=== PATIENT | female | born 1975 | race Caucasian/White ===

== ENCOUNTER 2016-03-01 16:17 | Emergency (ER) | payer OTHER ==
[~2016-03-01] VITALS: Ht 167.6 cm; Wt 72.6 kg
[2016-03-01] MEDS ORDERED: ALPRAZOLAM 0.5 MG TABLET PO ONE (17:00)
[2016-03-01] MEDS ORDERED: PARO20TA55 PO (17:52)
[2016-03-01] MEDS ORDERED: ALPR0.254 PO (17:52)
--- NOTE | 2016-03-01 17:52 | PHYS DOC ---
Past Medical History Past Medical History: Anxiety Past Surgical History: No Surgical History Alcohol Use: Occasionally Drug Use: None Adult General Chief Complaint Chief Complaint: CHEST PAIN-CARDIAC NATURE HPI HPI 41-year-old with a history of anxiety and depression states her symptoms have been getting worse over the last several weeks. She states she constantly is anxious which is limiting what she can do on a day-to-day basis. She also states she feels down in the dumps. She denies any suicidal or homicidal ideation. She states she's been told in the past that she needs to be on an antidepressant. [] Review of Systems Review of Systems Constitutional: Denies fever or chills [] Eyes: Denies change in visual acuity, redness, or eye pain [] HENT: Denies nasal congestion or sore throat [] Respiratory: Denies cough or shortness of breath [] Cardiovascular: No additional information not addressed in HPI [] GI: Denies abdominal pain, nausea, vomiting, bloody stools or diarrhea [] : Denies dysuria or hematuria [] Musculoskeletal: Denies back pain or joint pain [] Integument: Denies rash or skin lesions [] Neurologic: Denies headache, focal weakness or sensory changes [] Endocrine: Denies polyuria or polydipsia [] Current Medications Current Medications Current Medications Medications (Trade) Dose Ordered Sig/[facility] Start Time Stop Time Status Last Admin Dose Admin Alprazolam (Xanax) 1 mg 1X ONCE 03/01/16 17:00 03/01/16 17:01 DC 03/01/16 17:12 1 MG Allergies Allergies Allergies Coded Allergies Type Severity Reaction Last Updated Verified No Known Drug Allergies 03/01/16 No Physical Exam Physical Exam Constitutional: Well developed, well nourished, no acute distress, non-toxic appearance. [] HENT: Normocephalic, atraumatic, bilateral external ears normal, oropharynx moist, no oral exudates, nose normal. [] Eyes: PERRLA, EOMI, conjunctiva normal, no discharge. [] Neck: Normal range of motion, no tenderness, supple, no stridor. [] Cardiovascular:Heart rate regular rhythm, no murmur [] Lungs & Thorax: Bilateral breath sounds clear to auscultation [] Abdomen: Bowel sounds normal, soft, no tenderness, no masses, no pulsatile masses. [] Skin: Warm, dry, no erythema, no rash. [] Back: No tenderness, no CVA tenderness. [] Extremities: No tenderness, no cyanosis, no clubbing, ROM intact, no edema. [] Neurologic: Alert and oriented X 3, normal motor function, normal sensory function, no focal deficits noted. [] Psychologic: Depressed affect tearful adamantly denies suicidal or homicidal ideation. [] Current Patient Data Vital Signs Vital Signs Date Time Temp Pulse Resp B/P Pulse Ox O2 Delivery O2 Flow Rate FiO2 03/01/16 16:17 98.1 97 14 147/74 94 Room Air 98.1 EKG EKG [] Radiology/Procedures Radiology/Procedures [] Course & Med Decision Making Course & Med Decision Making Pertinent Labs and Imaging studies reviewed. (See chart for details) [ED course: I which reveals an anxious 41-year-old female in no significant medical distress. She was given alprazolam during her stay in the department which did help alleviate her symptoms. The patient is stable for discharge home. I will prescribe her an SSRI and give her a few Xanax to take as needed.] Dragon Disclaimer Dragon Disclaimer This electronic medical record was generated, in whole or in part, using a voice recognition dictation system. Departure Departure Impression: Primary Impression: Depression Additional Impression: Anxiety Disposition: 01 HOME, SELF-CARE Condition: STABLE Referrals: NEGRA MCKNIGHT MD (PCP) Patient Instructions: Anxiety and Panic Attacks, Depression, Adult Additional Instructions: Thank you for allowing us to participate in your care today. Followup with your primary care physician in 3 days if your symptoms do not improve. Return to the emergency department you have any new or concerning findings. This should be evaluated by the primary care physician and any necessary consulting services for continued management within a few days after discharge. Return to emergency room if you have any new or concerning symptoms including but not limited to fever, chills, nausea, vomiting, intractable pain, any new rashes, chest pain, shortness of air, uncontrolled bleeding, difficulty breathing, and/or vision loss. You may have been prescribed medication that can change in your level of thinking and ability to operate machinery. These medications include hydrocodone and Ativan. Also, Benadryl has been known to do this as well. Be sure to check with your pharmacist and ask if the medications you've prescribed can affect your level of consciousness. I recommend not operating heavy machinery or driving while on medication such as these. Scripts Paroxetine Hcl (Paxil)20 Mg Tablet1 Tab PO DAILY depression #90 TAB Ref 3 Prov:CHAD FELTON DO 03/01/16 Alprazolam 0.25 Mg Tablet0.25 Mg PO PRN Q6HRS PRN ANXIETY / AGITATION #20 TAB Prov:CHAD FELTON DO 03/01/16 Problem Qualifiers Primary Impression: Depression Depression Type: unspecified Qualified Code: F32.9 - Major depressive disorder, single episode, unspecified CHAD FELTON DO Mar 01, 2016 17:52
[2016-03-01 18:20] VITALS: BP 140/83
--- NOTE | 2016-03-02 06:56 | EKG ---
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
== END 2016-03-01 19:05 | disposition home or self-care (01) ==
LOC: ER 16:17
DX: F41.9 Anxiety disorder, unspecified (principal); F32.9 Major depressive disorder, single episode, unspecified
CPT/HCPCS: 93005; 99283-25

== ENCOUNTER 2017-04-17 12:25 | Inpatient (IN) | payer OTHER ==
[2017-04-17] MEDS: DIPHTH,PERTUSS(ACELL),TET TOX 0.5 ML DISP.SYRIN. VAX IM (13:30)
[2017-04-17 14:56] LABS: ADD MAN DIFF? NO
[2017-04-17 15:01] LABS: BASO % 1 % (0-3); EOS # 0.1 x10^3/uL (0.0-0.7); EOS % 1 % (0-3); HEMATOCRIT 49.8 % (36.0-47.0); HEMOGLOBIN 16.6 g/dL (12.0-15.5); LYMPH # 1.8 x10^3/uL (1.0-4.8); LYMPH % 27 % (24-48); MEAN CORPUSCULAR HEMOGLOBIN 31 pg (25-35); MEAN CORPUSCULAR HGB CONC 33 g/dL (31-37); MEAN CORPUSCULAR VOLUME 93 fL (79-100); MONO # 0.4 x10^3/uL (0.0-1.1); MONO % 6 % (0-9); NEUT # 4.3 x10^3uL (1.8-7.7); NEUT % 65 % (31-73); PLATELET COUNT 195 x10^3/uL (140-400); RED BLOOD COUNT 5.35 x10^6/uL (3.50-5.40); RED CELL DISTRIBUTION WIDTH 14.1 % (11.5-14.5); WHITE BLOOD COUNT 6.6 x10^3/uL (4.0-11.0)
[2017-04-17 15:12] LABS: PARTIAL THROMBOPLASTIN TIME 29 SEC (24-38)
[2017-04-17 15:17] LABS: ANION GAP 11 (6-14); BLOOD UREA NITROGEN 6 mg/dL (7-20); BUN/CREATININE RATIO 7 (6-20); CALCIUM 9.8 mg/dL (8.5-10.1); CARBON DIOXIDE 28 mmol/L (21-32); CHLORIDE 103 mmol/L (98-107); CREATININE 0.9 mg/dL (0.6-1.0); GFR 69.3; GLUCOSE 93 mg/dL (70-99); POTASSIUM 4.4 mmol/L (3.5-5.1); SODIUM 142 mmol/L (136-145)
[2017-04-17 15:21] LABS: ALBUMIN 4.2 g/dL (3.4-5.0); ALBUMIN/GLOBULIN RATIO 1.2 (1.0-1.7); ALK PHOS 54 U/L (46-116); ALT (SGPT) 25 U/L (14-59); AST (SGOT) 16 U/L (15-37); TOTAL BILIRUBIN 0.9 mg/dL (0.2-1.0); TOTAL PROTEIN 7.8 g/dL (6.4-8.2)
[2017-04-17] MEDS: WARFARIN 7.5 MG TABLET. PO (17:23)
[2017-04-17] MEDS: IBUPROFEN 600 MG TABLET. PO (19:52)
[2017-04-17] MEDS: ZOLPIDEM 5 MG TABLET. PO ×2 (21:01→23:03)
[2017-04-18 05:21] LABS: PROTHROMBIN TIME PATIENT 12.9 SEC (11.7-14.0)
[2017-04-18] MEDS: WARFARIN 3 MG TABLET. PO (15:52)
[2017-04-18] MEDS: ALPRAZolam 0.25 MG TABLET PO (17:35)
[2017-04-18] MEDS: oxyCODONE/APAP 5/325 1 TAB TABLET PO (20:42)
[2017-04-18] MEDS: risperiDONE 1 MG TABLET. PO (20:42)
[2017-04-18] MEDS: ZOLPIDEM 5 MG TABLET. PO (20:42)
[2017-04-19 05:35] LABS: INR 1.1 (0.8-1.1); PROTHROMBIN TIME PATIENT 13.3 SEC (11.7-14.0)
[2017-04-19] MEDS: oxyCODONE/APAP 5/325 1 TAB TABLET PO ×3 (07:30→20:47)
[2017-04-19] MEDS: WARFARIN 10 MG TABLET. PO (17:14)
[2017-04-19] MEDS: ALPRAZolam 0.25 MG TABLET PO (18:44)
[2017-04-19] MEDS: risperiDONE 1 MG TABLET. PO (20:47)
[2017-04-19] MEDS: ZOLPIDEM 5 MG TABLET. PO ×2 (20:47→23:37)
[2017-04-20 04:46] LABS: INR 1.7 (0.8-1.1)
[2017-04-20] MEDS: oxyCODONE/APAP 5/325 1 TAB TABLET PO ×2 (08:41→18:25)
[2017-04-20] MEDS: WARFARIN 7.5 MG TABLET. PO (15:36)
[2017-04-20] MEDS: ALPRAZolam 0.25 MG TABLET PO (18:25)
[2017-04-20 19:17] LABS: PROTHROMBIN GENE MUTATION Negative (.)
[2017-04-20] MEDS: risperiDONE 1 MG TABLET. PO (20:36)
[2017-04-20] MEDS: ZOLPIDEM 5 MG TABLET. PO ×2 (20:36→23:09)
[2017-04-21 05:41] LABS: INR 2.2 (0.8-1.1); PROTHROMBIN TIME PATIENT 23.6 SEC (11.7-14.0)
[2017-04-21] MEDS: oxyCODONE/APAP 5/325 1 TAB TABLET PO (08:51)
[2017-04-21] MEDS ORDERED: WARFARIN 7.5 MG TABLET. PO (15:00)
== END 2017-04-21 13:52 | disposition home or self-care (01) | DRG 301 ==
LOC: ER 12:25 → 5 NORTH 14:35
DX: I82.812 Embolism and thrombosis of superficial veins of left lower extremity (principal); F17.210 Nicotine dependence, cigarettes, uncomplicated; I82.492 Acute embolism and thrombosis of other specified deep vein of left lower extremity; F31.9 Bipolar disorder, unspecified; F41.9 Anxiety disorder, unspecified; Z79.01 Long term (current) use of anticoagulants; Z79.899 Other long term (current) drug therapy; Z86.718 Personal history of other venous thrombosis and embolism
CPT/HCPCS: 36415; 80053; 81240; 85025; 85220; 85610; 85730; 90471; 90715; 93971; 99285; 99285-25; J1650

== ENCOUNTER → 2017-05-23 | Outpatient (CLI) | payer OTHER | END | disposition home or self-care (01) | LOC: US 09:23 | DX: I82.890 Acute embolism and thrombosis of other specified veins (principal) | CPT/HCPCS: 93971 ==

== ENCOUNTER → 2017-06-30 | Outpatient (CLI) | payer OTHER | END | disposition home or self-care (01) | LOC: US 08:50 | DX: I82.890 Acute embolism and thrombosis of other specified veins (principal) | CPT/HCPCS: 93971 ==

== ENCOUNTER 2017-09-02 23:31 | Emergency (ER) | payer OTHER ==
[2017-09-03 00:18] LABS: ADD MAN DIFF? NO
[2017-09-03 00:22] LABS: BASO % 1 % (0-3); BILIRUBIN,URINE NEGATIVE (NEG); CLARITY,URINE CLEAR; COLOR,URINE YELLOW; EOS # 0.1 x10^3/uL (0.0-0.7); EOS % 1 % (0-3); GLUCOSE,URINE NEGATIVE (NEG); HEMATOCRIT 45.5 % (36.0-47.0); LYMPH % 41 % (24-48); MEAN CORPUSCULAR HEMOGLOBIN 32 pg (25-35); MEAN CORPUSCULAR HGB CONC 35 g/dL (31-37); MEAN CORPUSCULAR VOLUME 92 fL (79-100); MONO # 0.3 x10^3/uL (0.0-1.1); MONO % 6 % (0-9); NEUT # 2.6 x10^3uL (1.8-7.7); NEUT % 52 % (31-73); NITRITE,URINE NEGATIVE (NEG); PH,URINE 6.5; PLATELET COUNT 190 x10^3/uL (140-400); PROTEIN,URINE NEGATIVE (NEG-TRACE); RED BLOOD COUNT 4.95 x10^6/uL (3.50-5.40); RED CELL DISTRIBUTION WIDTH 13.8 % (11.5-14.5); UROBILINOGEN,URINE 0.2 mg/dL (0.2 mg/dL)
[2017-09-03 00:31] LABS: BACTERIA,URINE 0 /HPF (0-FEW); INR 2.2 (0.8-1.1); PARTIAL THROMBOPLASTIN TIME 36 SEC (24-38); PROTHROMBIN TIME PATIENT 23.3 SEC (11.7-14.0); RBC,URINE 0 /HPF (0-2); SQUAMOUS EPITHELIAL CELL,UR OCC /LPF; WBC,URINE 0 /HPF (0-4)
[2017-09-03 00:32] LABS: NEG OBC UR NEG; POS OBC UR POS; U PREG PATIENT NEGATIVE (NEG)
[2017-09-03 00:34] LABS: ETHANOL 138 mg/dL (0-10)
[2017-09-03 00:34] LABS: ANION GAP 11 (6-14); BLOOD UREA NITROGEN 8 mg/dL (7-20); BUN/CREATININE RATIO 10 (6-20); CARBON DIOXIDE 28 mmol/L (21-32); CHLORIDE 105 mmol/L (98-107); CREATININE 0.8 mg/dL (0.6-1.0); GFR 79.4; GLUCOSE 89 mg/dL (70-99); POTASSIUM 3.2 mmol/L (3.5-5.1); SODIUM 144 mmol/L (136-145)
[2017-09-03 00:35] LABS: BARBITURATES NEG (NEG); BENZODIAZEPINES NEG (NEG); CANNABINOIDS NEG (NEG); COCAINE NEG (NEG); METHADONE NEG (NEG); OPIATES NEG (NEG); PHENCYCLIDINE NEG (NEG)
[2017-09-03 00:42] LABS: ALBUMIN 4.5 g/dL (3.4-5.0); ALBUMIN/GLOBULIN RATIO 1.4 (1.0-1.7); ALK PHOS 50 U/L (46-116); ALT (SGPT) 31 U/L (14-59); AST (SGOT) 18 U/L (15-37); MAGNESIUM 2.1 mg/dL (1.8-2.4); TOTAL BILIRUBIN 0.5 mg/dL (0.2-1.0); TOTAL PROTEIN 7.7 g/dL (6.4-8.2)
[2017-09-03 00:43] LABS: TROPONINI < 0.017 ng/mL (0.000-0.055)
[2017-09-03 00:43] LABS: AMPHETAMINE/METHAMPHETAMINE NEG (NEG); ETHANOL, URINE POS (NEG)
[2017-09-03 00:50] LABS: CKMB INDEX 0.8 % (0-4); CKMB MASS 1.4 ng/mL (0.0-3.6); CREATINE KINASE 167 U/L (26-192)
[2017-09-03] MEDS: POTASSIUM CHLORIDE 20 MEQ TABLET.ER. PO (01:04)
== END 2017-09-03 02:20 | disposition home or self-care (01) ==
LOC: ER 23:31
DX: F10.920 Alcohol use, unspecified with intoxication, uncomplicated (principal); R53.1 Weakness; F41.9 Anxiety disorder, unspecified; F31.9 Bipolar disorder, unspecified; Z86.718 Personal history of other venous thrombosis and embolism; Y90.9 Presence of alcohol in blood, level not specified
CPT/HCPCS: 36415; 70450; 71046; 72125; 80053; 80307; 81001; 81025; 82553; 83735; 84484; 85025; 85610; 85730; 93005; 99285-25; G0480

== ENCOUNTER → 2017-09-14 | Outpatient (CLI) | payer OTHER ==
[2017-09-03 02:20] VITALS: BP 140/71
[~2017-09-14] MED LIST: ALPR0.254 PO; PARO20TA99 PO; RISP3TAB23 PO; WARF-31 PO
--- NOTE | 2017-09-14 15:38 | RAD ---
Left lower extremity venous duplex ultrasound study without comparisons for personal history of greater saphenous vein thrombosis. TECHNIQUE AND FINDINGS: The left common femoral, superficial femoral, popliteal, and deep femoral veins all demonstrate normal compressibility and augmentation of flow. Posterior tibial veins are patent as well. There is no evidence of DVT. Greater saphenous vein is patent throughout the thigh. IMPRESSION: 1. No evidence of deep vein thrombosis. There is resolution of the greater saphenous thrombus throughout the thigh. Electronically signed by: Ruperto Gray MD (09/14/2017 3:34 PM) [id number]
== END | disposition home or self-care (01) ==
LOC: US 10:51
PROVIDERS: ATTEND Internal Medicine Hematology & Oncology
DX: I82.492 Acute embolism and thrombosis of other specified deep vein of left lower extremity (principal); Z87.891 Personal history of nicotine dependence; Z86.718 Personal history of other venous thrombosis and embolism; Z79.01 Long term (current) use of anticoagulants
CPT/HCPCS: 93971